=== PATIENT | female | born 1970 | race Caucasian/White ===

== ENCOUNTER 2017-01-22 23:52 | Emergency (ER) | payer MEDICAID, OTHER ==
[~2017-01-22] VITALS: Ht 162.6 cm; Wt 56.7 kg
[2017-01-23] VITALS: BP 122/67
== END 2017-01-23 00:32 | disposition home or self-care (01) ==
LOC: ER 23:54
DX: A49.02 Methicillin resistant Staphylococcus aureus infection, unspecified site (principal)
CPT/HCPCS: 99283; A4606; Z7610 ×2

== ENCOUNTER 2017-09-23 23:22 | Emergency (ER) | payer OTHER ==
[~2017-09-23] VITALS: Ht 162.6 cm; Wt 56.7 kg
[2017-09-23 23:30] VITALS: BP 161/104
== END 2017-09-24 02:04 | disposition home or self-care (01) ==
LOC: ER 23:29
DX: S90.01XA Contusion of right ankle, initial encounter (principal); F90.9 Attention-deficit hyperactivity disorder, unspecified type; X58.XXXA Exposure to other specified factors, initial encounter; Y93.39 Activity, other involving climbing, rappelling and jumping off; Y92.89 Other specified places as the place of occurrence of the external cause; Y99.8 Other external cause status
CPT/HCPCS: 99283; A4606; Z7610

== ENCOUNTER 2018-01-12 13:42 | Emergency (ER) | payer OTHER ==
[~2018-01-12] VITALS: Ht 162.6 cm; Wt 57.2 kg
[2018-01-12 13:50] VITALS: BP 133/72
[2018-01-12] MEDS ORDERED: IBUPROFEN 600 MG TABLET PO ONE ×2 (14:30)
== END 2018-01-12 15:23 | disposition home or self-care (01) ==
LOC: ER 13:43
DX: S90.111A Contusion of right great toe without damage to nail, initial encounter (principal); F90.9 Attention-deficit hyperactivity disorder, unspecified type; W22.8XXA Striking against or struck by other objects, initial encounter; Y93.89 Activity, other specified; Y92.89 Other specified places as the place of occurrence of the external cause; Y99.8 Other external cause status
CPT/HCPCS: 73660-TC; A4606; Z7610

== ENCOUNTER 2019-02-22 21:08 | Emergency (ER) | payer OTHER ==
--- NOTE | 2019-02-22 21:21 | NUR ---
PT CALLED FOR TRIAGE, NO ANSWER.
--- NOTE | 2019-02-22 21:33 | NUR ---
2ND CALL FOR PT, NO ANSWER.
--- NOTE | 2019-02-22 21:43 | NUR ---
3RD CALL FOR TRIAGE, NO ANSWER. LWBT.
== END 2019-02-22 22:23 | disposition left against medical advice (07) ==
LOC: ER 21:10
DX: Z53.21 Procedure and treatment not carried out due to patient leaving prior to being seen by health care provider (principal)